=== PATIENT | male | born 1970 | race Caucasian/White ===

== ENCOUNTER 2019-11-05 01:30 | Emergency (ER) | payer OTHER ==
--- NOTE | 2019-11-05 01:35 | EDM.PDOC ---
ED HPI GENERAL MEDICAL PROBLEM - General Chief Complaint: Neuro Symptoms/Deficits Stated Complaint: [facility] Time Seen by Provider: 11/05/19 01:30 - History of Present Illness INITIAL COMMENTS - FREE TEXT/NARRATIVE: 49-year-old male presents the emergency room by my ambulance with a possible stroke. He was last known normal around 10 PM [place] time. The patient ate a large supper and then shortly thereafter went to bed. He fell asleep but then awoken went to the bathroom not feeling well thought he was going to vomit. He could not get himself to throw up so he sat on the edge of the tub then his eyes rolled back he slumped down. He awoke had some slurred speech family called EMS. EMS observed some slurred speech. They transported him here shortly after 131 [place] time. Brief exam showed some weakness on the right side he was taken to CT my initial impression of the CT was normal. He came back more thorough examination was done which revealed some questionable slurred speech at times the thought this was normal at times she thought it was abnormal he definitely had some right-sided weakness compared to the left but was able to do anything with the right hand or leg but it was just subtly weaker. Past medical history significant for cardiovascular disease he has had 2 stents and maybe a small LA. He is borderline diabetic obese. - Related Data Allergies Allergy/AdvReac Type Severity Reaction Status Date / Time No Known Allergies Allergy Verified 11/05/19 01:40 Home Meds: Home Meds Aspirin [Ecotrin EC] 81 mg PO DAILY 11/05/19 [History] Carvedilol [Coreg] 3.125 mg PO BID 11/05/19 [History] allopurinoL [Zyloprim] 300 mg PO DAILY 11/05/19 [History] atorvaSTATin [Lipitor] 80 mg PO BEDTIME 11/05/19 [History] lisinopriL [Lisinopril] 5 mg PO DAILY 11/05/19 [History] ED ROS GENERAL - Review of Systems Review Of Systems: See Below Constitutional: Reports: No Symptoms HEENT: Reports: No Symptoms Respiratory: Reports: No Symptoms Cardiovascular: Reports: No Symptoms Endocrine: Reports: No Symptoms GI/Abdominal: Reports: Diarrhea, Nausea. Denies: Abdominal Pain : Reports: No Symptoms Musculoskeletal: Reports: No Symptoms Skin: Reports: No Symptoms ED EXAM, NEURO - Physical Exam Exam: See Below Exam Limited By: Other (Is a little slurred some of this might be baseline) General Appearance: Alert, No Apparent Distress Eye Exam: Bilateral Eye: Normal Inspection, PERRL Ears: Normal External Exam, Normal Canal, Hearing Grossly Normal, Normal TMs Nose: Normal Inspection, Normal Mucosa, No Blood Throat/Mouth: Normal Inspection, Normal Lips, Normal Gums, Normal Oropharynx, Normal Voice, No Airway Compromise Head Exam: Atraumatic, Normocephalic Neck: Normal Inspection, Supple, Non-Tender, Full Range of Motion Respiratory/Chest: No Respiratory Distress, Lungs Clear, Normal Breath Sounds Cardiovascular: Regular Rate, Rhythm, No Edema, No Murmur GI/Abdominal: Normal Bowel Sounds, Soft, Non-Tender Neurological: Other (Patient has some speech abnormality but this is subtle. He has some right-sided upper and lower extremity weakness in all muscle groups compared to the left he is right-hand dominant. He does not appreciate any abnormal sensation in his facial sensation and no appreciable muscle weakness noted in his face. Sensation appears to be intact in the extremities) Back Exam: Normal Inspection Extremities: Normal Inspection, No Pedal Edema EKG INTERPRETATION EKG Date: 11/05/19 Rhythm: NSR [place]: Normal P-Wave: Present QRS: Normal ST-T: Normal QT: Prolonged Comparison: NA - No Prior EKG EKG Interpretation Comments: Prolonged QT Course - Vital Signs Last Recorded V/S: Last Vital Signs Temp 36.3 C 11/05/19 01:41 Pulse 67 11/05/19 01:41 Resp 20 11/05/19 01:41 BP 128/72 11/05/19 01:41 Pulse Ox 93 L 11/05/19 01:41 - Orders/Labs/Meds Orders: Active Orders 24 hr Category Date Time Status EKG Documentation Completion [RC] STAT Care 11/05/19 01:36 Active Head wo Cont [CT] Stat Exams 11/05/19 01:37 Taken Labs: Laboratory Tests 11/05/19 11/05/19 11/05/19 Range/Units 01:42 01:55 01:55 WBC 15.59 H (4.23-9.07) K/mm3 RBC 3.96 L (4.63-6.08) M/mm3 Hgb 13.2 L (13.7-17.5) gm/dl Hct 39.7 L (40.1-51.0) % MCV 100.3 H (79.0-92.2) fl MCH 33.3 H (25.7-32.2) pg MCHC 33.2 (32.2-35.5) g/dl RDW Std Deviation 48.2 H (35.1-43.9) fL Plt Count 181 (163-337) K/mm3 MPV 10.8 (9.4-12.3) fl Neutrophils % (Manual) 87 H (40-60) % Band Neutrophils % 0 (0-10) % Lymphocytes % (Manual) 8 L (20-40) % Atypical Lymphs % 0 % Monocytes % (Manual) 4 (2-10) % Eosinophils % (Manual) 1 (0.8-7.0) % Basophils % (Manual) 0 L (0.2-1.2) Platelet Estimate Adequate RBC Morph Comment Normal PT 10.9 (9.7-12.0) SECONDS INR 1.00 APTT 21 L (22-31) SECONDS Sodium (136-145) mEq/L Potassium (3.5-5.1) mEq/L Chloride (98-107) mEq/L Carbon Dioxide (21-32) mEq/L Anion Gap (5-15) BUN (7-18) mg/dL Creatinine (0.7-1.3) mg/dL Est Cr Clr Drug Dosing Estimated GFR (MDRD) (>60) mL/min BUN/Creatinine Ratio (14-18) Glucose (74-106) mg/dL POC Glucose 143 H (70-105) mg/dL Calcium (8.5-10.1) mg/dL Total Bilirubin (0.2-1.0) mg/dL AST (15-37) U/L ALT (16-63) U/L Alkaline Phosphatase (46-116) U/L Troponin I (0.00-0.056) ng/mL Total Protein (6.4-8.2) g/dl Albumin (3.4-5.0) g/dl Globulin gm/dL Albumin/Globulin Ratio (1-2) 11/05/ Range/Units 01:55 WBC (4.23-9.07) K/mm3 RBC (4.63-6.08) M/mm3 Hgb (13.7-17.5) gm/dl Hct (40.1-51.0) % MCV (79.0-92.2) fl MCH (25.7-32.2) pg MCHC (32.2-35.5) g/dl RDW Std Deviation (35.1-43.9) fL Plt Count (163-337) K/mm3 MPV (9.4-12.3) fl Neutrophils % (Manual) (40-60) % Band Neutrophils % (0-10) % Lymphocytes % (Manual) (20-40) % Atypical Lymphs % % Monocytes % (Manual) (2-10) % Eosinophils % (Manual) (0.8-7.0) % Basophils % (Manual) (0.2-1.2) Platelet Estimate RBC Morph Comment PT (9.7-12.0) SECONDS INR APTT (22-31) SECONDS Sodium 140 (136-145) mEq/L Potassium 4.0 (3.5-5.1) mEq/L Chloride 102 (98-107) mEq/L Carbon Dioxide 28 (21-32) mEq/L Anion Gap 14.0 (5-15) BUN 21 H (7-18) mg/dL Creatinine 1.5 H (0.7-1.3) mg/dL Est Cr Clr Drug Dosing TNP Estimated GFR (MDRD) 49 (>60) mL/min BUN/Creatinine Ratio 14.0 (14-18) Glucose 136 H (74-106) mg/dL POC Glucose (70-105) mg/dL Calcium 9.4 (8.5-10.1) mg/dL Total Bilirubin 0.5 (0.2-1.0) mg/dL AST 33 (15-37) U/L ALT 42 (16-63) U/L Alkaline Phosphatase 46 (46-116) U/L Troponin I < 0.017 (0.00-0.056) ng/mL Total Protein 7.7 (6.4-8.2) g/dl Albumin 4.5 (3.4-5.0) g/dl Globulin 3.2 gm/dL Albumin/Globulin Ratio 1.4 (1-2) - Re-Assessments/Exams Free Text/Narrative Re-Assessment/Exam: 11/05/19 02:[address] Townsend on the stroke team at [facility] in [place] who recommended transferring the patient Case discussed with Dr. Aguilar ER physician who accepted the patient at 02 32 Departure - Departure Time of Disposition: 02:58 Disposition: DC/Tfer to Acute Hospital 02 Clinical Impression: CVA (cerebral vascular accident) - Discharge Information Referrals: Edison Delgadilol MD [Primary Care Provider] - Forms: ED Department Discharge Sepsis Event Note - Focused Exam Vital Signs: Vital Signs Temp Pulse Resp BP Pulse Ox 11/05/19 01:41 36.3 C 67 20 128/72 93 L Date Exam was Performed: 11/05/19 Time Exam was Performed: 02:56 - My Orders Last 24 Hours: My Active Orders 11/05/19 01:36 EKG Documentation Completion [RC] STAT 11/05/19 01:37 Head wo Cont [CT] Stat - Assessment/Plan Last 24 Hours: My Active Orders 11/05/19 01:36 EKG Documentation Completion [RC] STAT 11/05/19 01:37 Head wo Cont [CT] Stat
--- NOTE | 2019-11-05 07:25 | CT ---
Head CT Technique: Multiple axial sections through the brain were obtained. Intravenous contrast was not utilized. Comparison: No prior intracranial imaging is available. Findings: Ventricles along with basal cisterns and sulci over the convexities are mildly prominent. No abnormal parenchymal densities are seen. No evidence of intracranial hemorrhage. No midline shift or mass effect is seen. No acute calvarial abnormality is seen. Visualized paranasal sinuses are clear. Hypoplastic mastoid sinuses are noted which is felt to be a normal variant. Impression: 1. Mild generalized atrophy. 2. No acute intracranial abnormality is seen. Diagnostic code #2 This report was dictated in [place] Standard Time I agree with preliminary report from [facility], finalized on 11/05/19, 2:53 AM Central Time
== END 2019-11-05 03:45 ==
LOC: JD.ED 01:30
DX: I63.9 Cerebral infarction, unspecified (principal); Z79.899 Other long term (current) drug therapy; Z79.82 Long term (current) use of aspirin
CPT/HCPCS: 36415; 70450; 70450-26; 80053; 82962; 84484; 85007; 85027; 85610; 85730; 93005; 93010; 99284; 99285-25